=== PATIENT | female | born 1985 | race Caucasian/White ===

== ENCOUNTER 2018-06-02 23:40 | Emergency (ER) | payer SELFPAY ==
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
== END 2018-06-03 00:10 ==
LOC: MW.ED 23:40
DX: Z04.1 Encounter for examination and observation following transport accident (principal)
CPT/HCPCS: 82962; 99282; 99283